=== PATIENT | male | born 1975 | race Caucasian/White ===

== ENCOUNTER 2021-02-06 14:10 | Day surgery (SDC) | payer OTHER ==
[2021-02-06] MEDS ORDERED: Piperacillin/Tazobactam 4.5 GM in Sodium Chloride 0.9% 100 ML IV ONE (14:45)
[2021-02-06] MEDS ORDERED: Sodium Chloride 0.9% 2.5 ML Syringe FLUSH PRN (14:45)
[2021-02-06] MEDS ORDERED: Sodium Chloride 0.9% 1,000 ML IV ONE (14:45)
[2021-02-06] MEDS ORDERED: Sodium Chloride 0.9% 10 ML Syringe FLUSH PRN (14:45)
[2021-02-06] MEDS ORDERED: HYDROmorphone 1 MG/ML Syringe IVPUSH ONE (14:46)
[2021-02-06] MEDS ORDERED: Ondansetron 4 MG/2 ML SDV IVPUSH ONE (14:46)
--- NOTE | 2021-02-06 15:28 | EDM.PDOC ---
ED HPI GENERAL MEDICAL PROBLEM - General Chief Complaint: General Stated Complaint: ABSCESS Time Seen by Provider: 02/06/21 14:12 - History of Present Illness INITIAL COMMENTS - FREE TEXT/NARRATIVE: History of present illness: [] This patient began to have perianal discomfort 6 days ago. It is gotten worse. He does not notice any external swelling except felt a little fullness like he might have a hemorrhoid. The patient's pain is become moderately severe. Its worse when he sits on it. Patient has not had a bowel movement for a few days. The patient had lab work and a CT ordered by his primary doctor. The CT showed a perianal abscess but there is very minimal localizing symptoms externally. Patient ate a bowl of chicken soup and fiber 1 at 2 PM. Review of systems: As per history of present illness and below otherwise all systems reviewed and negative. Past medical history: As per history of present illness and as reviewed below otherwise noncontributory. Surgical history: As per history of present illness and as reviewed below otherwise noncontributory. Social history: No reported history of drug or alcohol abuse. Family history: As per history of present illness and as reviewed below otherwise noncontributory. Physical exam: Constitutional - well developed, well-nourished and in no acute distress HEENT - normocephalic, no evidence of trauma - external nose and mouth normal - no mass in neck and no JVD - mucosae moist EYES - full EOM, PERRL, no icterus - no evidence of inflammation, injection, or drainage Respiratory - no respiratory distress, equal bilateral expansion Musculoskeletal no gross deformity of long bones or joints - no tenderness, swelling or edema Neurologic - Alert and oriented times four - CN II-XII grossly intact - motor sensory and coordination symmetrically normal Psychiatric - appropriate mood and affect with normal thought content Hematologic - No petechiae or purpura - mucosa appropriate color and sclera not pale - normal nail bed color and refill Integument - no rash or evidence of trauma - normal turgor -rectal -minimal swelling and soft tissue tenderness in the left side of the perianal soft tissues. Diagnostics: [] Therapeutics: [] Impression: [] Plan: [] Definitive disposition and diagnosis as appropriate pending reevaluation and review of above. Rectal Pain Score (Numeric/FACES): 8 - Related Data Allergies Allergy/AdvReac Type Severity Reaction Status Date / Time No Known Allergies Allergy Verified 02/06/21 14:56 Past Medical History Cardiovascular History: Reports: High Cholesterol, Hypertension - Infectious Disease History Infectious Disease History: Reports: Chicken Pox Social & Family History - Family History Family Medical History: No Pertinent Family History - Tobacco Use Tobacco Use Status *Q: Unknown Ever Used Tobacco - Caffeine Use Caffeine Use: Reports: Coffee ED ROS GENERAL - Review of Systems Review Of Systems: Comprehensive ROS is negative, except as noted in HPI. ED EXAM, GENERAL - Physical Exam Exam: See Below Free Text/Narrative:: My physical exam is in the HPI Course - Vital Signs Text/Narrative:: [id number] Watson and he will see the patient to make a disposition. He ordered a Covid test in case he needs to take the patient to the OR Seen 47 hours document: The patient decided they would go to the OR to try to explore this perianal abscess that is not readily visible from external exam. Last Recorded V/S: Last Vital Signs Temp 38.2 C H 02/06/21 14:58 Pulse 92 02/06/21 14:58 Resp 18 02/06/21 14:58 BP 131/80 02/06/21 14:58 Pulse Ox 97 02/06/21 14:58 - Orders/Labs/Meds Orders: Active Orders 24 hr Category Date Time Status NPO Now [Nothing per Oral Now Diet] [DIET] Diet 02/06/21 Dinner Active CORONAVIRUS COVID-19 MILADY [MOLEC] Stat Lab 02/06/21 15:38 Received Sodium Chloride 0.9% [Saline Flush] Med 02/06/21 14:45 Active 10 ml FLUSH ASDIRECTED PRN Sodium Chloride 0.9% [Saline Flush] Med 02/06/21 14:45 Active 2.5 ml FLUSH ASDIRECTED PRN Saline Lock Insert [OM.PC] Stat Oth 02/06/21 14:45 Ordered Medication Orders Sodium Chloride (Sodium Chloride 0.9% 10 Ml Syringe) 10 ml FLUSH ASDIRECTED PRN PRN Reason: Keep Vein Open Last Admin: 02/06/21 15:44 Dose: 10 ml Documented by: BAO Sodium Chloride (Sodium Chloride 0.9% 2.5 Ml Syringe) 2.5 ml FLUSH ASDIRECTED PRN PRN Reason: Keep Vein Open Last Admin: 02/06/21 15:44 Dose: 2.5 ml Documented by: BAO Meds: Medications Generic Name Dose Route Start Last Admin Trade Name Jl PRN Reason Stop Dose Admin Sodium Chloride 10 ml 02/06/21 14:45 02/06/21 15:44 Sodium Chloride 0.9% 10 Ml Syringe FLUSH 10 ml ASDIRECTED PRN Administration Keep Vein Open Sodium Chloride 2.5 ml 02/06/21 14:45 02/06/21 15:44 Sodium Chloride 0.9% 2.5 Ml Syringe FLUSH 2.5 ml ASDIRECTED PRN Administration Keep Vein Open Discontinued Medications Generic Name Dose Route Start Last Admin Trade Name Heberq PRN Reason Stop Dose Admin Hydromorphone HCl 1 mg 02/06/21 14:46 02/06/21 15:44 Hydromorphone 1 Mg/Ml Syringe IVPUSH 02/06/21 14:47 Not Given ONETIME ONE Sodium Chloride 1,000 mls @ 1,000 mls/hr 02/06/21 14:45 02/06/21 15:43 Normal Saline IV 02/06/21 15:44 1,000 mls/hr .Bolus ONE Administration Piperacillin Sod/Tazobactam 100 mls @ 100 mls/hr 02/06/21 14:45 02/06/21 15:43 Sod 4.5 gm/ Sodium Chloride IV 02/06/21 15:44 100 mls/hr ONETIME ONE Administration Ondansetron HCl 4 mg 02/06/21 14:46 02/06/21 15:44 Ondansetron 4 Mg/2 Ml Sdv IVPUSH 02/06/21 14:47 Not Given ONETIME ONE Departure - Departure Time of Disposition: 16:47 Disposition: Refer to Observation Condition: Good Clinical Impression: Perianal abscess - Discharge Information Referrals: Sandra Randhawa NP [Primary Care Provider] - Forms: ED Department Discharge Sepsis Event Note (ED) - Focused Exam Vital Signs: Vital Signs Temp Pulse Resp BP Pulse Ox 02/06/21 14:58 38.2 C H 92 18 131/80 97 - My Orders Last 24 Hours: My Active Orders 02/06/21 14:45 Sodium Chloride 0.9% [Saline Flush] 10 ml FLUSH ASDIRECTED PRN Sodium Chloride 0.9% [Saline Flush] 2.5 ml FLUSH ASDIRECTED PRN Saline Lock Insert [OM.PC] Stat 02/06/21 15:38 CORONAVIRUS COVID-19 MILADY [MOLEC] Stat 02/06/21 Dinner NPO Now [Nothing per Oral Now Diet] [DIET] - Assessment/Plan Last 24 Hours: My Active Orders 02/06/21 14:45 Sodium Chloride 0.9% [Saline Flush] 10 ml FLUSH ASDIRECTED PRN Sodium Chloride 0.9% [Saline Flush] 2.5 ml FLUSH ASDIRECTED PRN Saline Lock Insert [OM.PC] Stat 02/06/21 15:38 CORONAVIRUS COVID-19 MILADY [MOLEC] Stat 02/06/21 Dinner NPO Now [Nothing per Oral Now Diet] [DIET]
[2021-02-06] MEDS ORDERED: Bupivacaine Liposome 1.3% 20 ML SDV ONE (16:49)
[2021-02-06] MEDS ORDERED: fentaNYL 100 MCG/2 ML SDV ONE (17:01)
[2021-02-06] MEDS ORDERED: Propofol 200 MG/20 ML SDV ONE (17:01)
[2021-02-06] MEDS ORDERED: Lidocaine 2% 100 MG/5 ML Syringe ONE (17:02)
[2021-02-06] MEDS ORDERED: Ondansetron 4 MG/2 ML SDV ONE (17:02)
[2021-02-06] MEDS ORDERED: Ketorolac 30 MG/ML SDV ONE (17:02)
[2021-02-06] MEDS ORDERED: Metoclopramide 10 MG/2 ML SDV ONE (17:15)
[2021-02-06] MEDS ORDERED: Rocuronium Bromide 50 MG/5 ML Syringe ONE ×2 (17:34)
[2021-02-06] MEDS ORDERED: Sugammadex Sodium 200 MG/2 ML VIAL ONE (17:34)
--- NOTE | 2021-02-06 18:41 | PCM48HPAN ---
Post Anesthesia Note - EVALUATION WITHIN 48HRS OF ANESTHETIC Vital Signs in Normal Range: Yes Patient Participated in Evaluation: Yes Respiratory Function Stable: Yes Airway Patent: Yes Cardiovascular Function Stable: Yes Hydration Status Stable: Yes Pain Control Satisfactory: Yes Nausea and Vomiting Control Satisfactory: Yes Mental Status Recovered: Yes Vital Signs: Last Vital Signs Temp 38.2 C H 02/06/21 14:58 Pulse 73 02/06/21 17:22 Resp 18 02/06/21 17:22 BP 123/78 02/06/21 17:22 Pulse Ox 98 02/06/21 17:22
--- NOTE | 2021-02-06 18:44 | PCM.PREANE ---
Preanesthetic Assessment - Procedure Proposed Procedure: I & D Perianal Abscess - Anesthesia/Transfusion/Family Hx Anesthesia History: Prior Anesthesia Without Reaction Family History of Anesthesia Reaction: No Transfusion History: No Prior Transfusion(s) - Review of Systems General: No Symptoms Pulmonary: No Symptoms Cardiovascular: No Symptoms Gastrointestinal: No Symptoms - Physical Assessment NPO Status Date: 02/06/21 NPO Status Time: 14:00 (soup plan RSI) Vital Signs: Last Vital Signs Temp 38.2 C H 02/06/21 14:58 Pulse 73 02/06/21 17:22 Resp 18 02/06/21 17:22 BP 123/78 02/06/21 17:22 Pulse Ox 98 02/06/21 17:22 Height: 1.85 m Weight: 129.727 kg ASA Class: 2E Mental Status: Alert & Oriented x3 Airway Class: Mallampati = 4 Dentition: Reports: Normal Dentition ROM/Head Extension: Full Lungs: Clear to Auscultation, Normal Respiratory Effort Cardiovascular: Regular Rate, Regular Rhythm - Lab Values: Laboratory Last Values SARS-CoV-2 RNA (MILADY) NEGATIVE (NEGATIVE) 02/06/21 15:38 - Allergies Allergies/Adverse Reactions: Allergies Allergy/AdvReac Type Severity Reaction Status Date / Time No Known Allergies Allergy Verified 02/06/21 14:56 - Blood Blood Available: No - Anesthesia Plan Pre-Op Medication Ordered: None - Acknowledgements Anesthesia Type Planned: General Anesthesia Pt an Appropriate Candidate for the Planned Anesthesia: Yes Alternatives and Risks of Anesthesia Discussed w Pt/Guardian: Yes Pt/Guardian Understands and Agrees with Anesthesia Plan: Yes Additional Comments: RSI discussed with and patient. Controlled HTN and chol. occasional GERD. PreAnesthesia Questionnaire Cardiovascular History: Reports: High Cholesterol, Hypertension - Infectious Disease History Infectious Disease History: Reports: Chicken Pox - SUBSTANCE USE Tobacco Use Status *Q: Unknown Ever Used Tobacco - HOME MEDS Home Medications: Home Meds Amoxicillin/Clavulanate K [Augmentin 875-125 MG] 1 tab PO Q12HR #10 tablet 02/06/21 [Rx] oxyCODONE HCl/Acetaminophen [Percocet 5-325 mg Tablet] 1 each PO Q6HR PRN #10 tablet 02/06/21 [Rx] - CURRENT (IN HOUSE) MEDS Current Meds: Current Medications Sodium Chloride (Sodium Chloride 0.9% 10 Ml Syringe) 10 ml FLUSH ASDIRECTED PRN PRN Reason: Keep Vein Open Last Admin: 02/06/21 15:44 Dose: 10 ml Documented by: Sodium Chloride (Sodium Chloride 0.9% 2.5 Ml Syringe) 2.5 ml FLUSH ASDIRECTED PRN PRN Reason: Keep Vein Open Last Admin: 02/06/21 15:44 Dose: 2.5 ml Documented by: Discontinued Medications Bupivacaine Liposome (Bupivacaine Liposome 1.3% 20 Ml Sdv) 20 ml .XX .STK-MED ONE Stop: 02/06/21 16:50 Fentanyl (Fentanyl 100 Mcg/2 Ml Sdv) Confirm Administered Dose 100 mcg .ROUTE .STK-MED ONE Stop: 02/06/21 17:02 Hydromorphone HCl (Hydromorphone 1 Mg/Ml Syringe) 1 mg IVPUSH ONETIME ONE Stop: 02/06/21 14:47 Last Admin: 02/06/21 15:44 Dose: Not Given Documented by: Sodium Chloride (Normal Saline) 1,000 mls @ 1,000 mls/hr IV .Bolus ONE Stop: 02/06/21 15:44 Last Admin: 02/06/21 15:43 Dose: 1,000 mls/hr Documented by: Piperacillin Sod/Tazobactam (Sod 4.5 gm/ Sodium Chloride) 100 mls @ 100 mls/hr IV ONETIME ONE Stop: 02/06/21 15:44 Last Admin: 02/06/21 15:43 Dose: 100 mls/hr Documented by: Ketorolac Tromethamine (Ketorolac 30 Mg/Ml Sdv) Confirm Administered Dose 30 mg .ROUTE .STK-MED ONE Stop: 02/06/21 17:03 Lidocaine HCl (Lidocaine 2% 100 Mg/5 Ml Syringe) Confirm Administered Dose 100 mg .ROUTE .STK-MED ONE Stop: 02/06/21 17:03 Metoclopramide HCl (Metoclopramide 10 Mg/2 Ml Sdv) Confirm Administered Dose 10 mg .ROUTE .STK-MED ONE Stop: 02/06/21 17:16 Ondansetron HCl (Ondansetron 4 Mg/2 Ml Sdv) 4 mg IVPUSH ONETIME ONE Stop: 02/06/21 14:47 Last Admin: 02/06/21 15:44 Dose: Not Given Documented by: Ondansetron HCl (Ondansetron 4 Mg/2 Ml Sdv) Confirm Administered Dose 4 mg .ROUTE .STK-MED ONE Stop: 02/06/21 17:03 Propofol (Propofol 200 Mg/20 Ml Sdv) Confirm Administered Dose 200 mg .ROUTE .STK-MED ONE Stop: 02/06/21 17:02 Rocuronium [place] (Rocuronium [place] 50 Mg/5 Ml Syringe) Confirm Administered Dose 50 mg .ROUTE .STRupeetalk-MED ONE Stop: 02/06/21 17:35 Rocuronium [place] (Rocuronium [place] 50 Mg/5 Ml Syringe) Confirm Administered Dose 50 mg .ROUTE .STRupeetalk-MED ONE Stop: 02/06/21 17:35 Sugammadex Sodium (Sugammadex Sodium 200 Mg/2 Ml Vial) Confirm Administered Dose 200 mg .ROUTE .STRupeetalk-MED ONE Stop: 02/06/21 17:35
--- NOTE | 2021-02-06 18:45 | PCM.POSTAN ---
POST ANESTHESIA ASSESSMENT - MENTAL STATUS Mental Status: Alert - VITAL SIGNS Vital Signs: Last Vital Signs Temp 97.4 C H 02/06/21 18:31 Pulse 91 02/06/21 18:31 Resp 16 02/06/21 18:31 BP 114/63 02/06/21 18:31 Pulse Ox 99 02/06/21 18:31 - RESPIRATORY Respiratory Status: Respiratory Rate WNL, Airway Patent, O2 Saturation Stable - CARDIOVASCULAR CV Status: Pulse Rate WNL, Blood Pressure Stable - GASTROINTESTINAL GI Status: No Symptoms - POST OP HYDRATION Hydration Status: Adequate & Stable
--- NOTE | 2021-02-06 18:47 | PCM.OPNOTE ---
- General Post-Op/Procedure Note Date of Surgery/Procedure: 02/06/21 Operative Procedure(s): Incision and Drainage of perianal abscess Findings: Perianal abscess Pre Op Diagnosis: Perianal abscess Post-Op Diagnosis: Perianal abscess Anesthesia Technique: General ET Tube Primary Surgeon: Rashawn Watson Pathology: none EBL in mLs: 5 Complications: None Condition: Good
--- NOTE | 2021-02-06 19:48 | OR ---
SURGEON: RAFAEL DOBSON MD DATE OF PROCEDURE: 02/06/2021 PREOPERATIVE DIAGNOSIS: Perianal abscess. POSTOPERATIVE DIAGNOSIS: Perianal abscess. PROCEDURE PERFORMED: Incision and drainage of a left posterior perianal abscess. ANESTHESIA: General. PRIMARY SURGEON: Rafael Dobson MD ESTIMATED BLOOD LOSS: Under 5 mL. SPECIMENS: None. COMPLICATIONS: None. REASON FOR PROCEDURE: Patient is a pleasant 45-year-old gentleman who almost a week ago started having rectal pain. He thought it was a hemorrhoid, it got worse and more painful. He started having fevers and chills mid week and was having night sweats and came into Urgent Care because he could not tolerate the pain anymore. He had a CT scan that showed a 3 x 4 cm perianal abscess, more on the left side. I did go over with the patient risks, goals, and alternatives of the procedure. Risks included, but were not limited to bleeding, continued infection, need for more drainage, fistula formation, injury to underlying structures as well as the sphincter muscles leading to incontinence of stool or flatus. The patient says he understood and wished to proceed. PROCEDURE IN DETAIL: The patient was brought back to the OR. He was prepped and draped in usual sterile fashion. He was put in lithotomy. Anesthesia was anesthesia provided by Anesthesia team and antibiotics had been given in the ER. A time-out was performed. Digital exam was performed. Now that he was relaxed, the fluctuance was more obvious on the left posterior rectum and anus. I did do exam with a bivalve speculoscope. He did not appear to have any openings or fistula tracts inside the rectum. Again, on the outside of the rectum, he did have some pox pan and some indentation that looked like old abscesses perhaps in the past had drained. I did place a needle while drawing back on the syringe. I did get a quite a bit of purulence back. Now, Exparel was injected and a cruciate incision was made over the area of greatest fluctuance. I did get a good return of purulent material. The abscess cavity was then irrigated. This area was then gently probed. It did not appear to have any fistula tract going into the rectum. Again, the area was irrigated. We did have good hemostasis. The wound was packed with quarter-inch Nu Gauze. At end of the case, sponge and needle counts were correct. The patient was transferred to recovery room in stable condition. I did go over with the patient discharge instructions. Patient may shower and take sitz baths. He should stay on his antibiotics. The packing may come out tomorrow. He should keep the area clean and dry. I did speak with him and his . Patient will follow up with me next week. He will come back sooner if he has any issues or problems. CHAR / YOAN /[id number] MTDD
--- NOTE | 2021-02-07 06:02 | ER ---
HISTORY OF PRESENT ILLNESS: The patient is a pleasant 45-year-old gentleman who said last Tuesday or almost a week ago noticed some pain and bump right in his rectal area. He thought this was potentially a hemorrhoid. He says it slowly was getting worse and then on Tuesday started getting fevers and chills and shaking and night sweats. Last night, the patient says he was having fairly extreme pain. He did go into the walk-in clinic today on Tuesday. They did do a CT scan that showed a 5 x 3 cm left perianal abscess. He was sent from the walk-in clinic to the ER. The patient denies any nausea and vomiting. He said yesterday he did have what felt like a little issue with urination. He says his last bowel movement was yesterday. He denies any blood in his stool. PAST MEDICAL HISTORY: Significant for hypertension and hypercholesterolemia. ALLERGIES: No known drug allergies. CURRENT HOME MEDICATIONS: The patient does not remember the exact name, but he takes something for hypertension, something for cholesterol. PAST SURGICAL HISTORY: He had a left hydrocele repaired. FAMILY HISTORY: Father has type 1 diabetes. SOCIAL HISTORY: The patient denies tobacco use. Denies illicit drug use. He does drink about 6 beers a night. REVIEW OF SYSTEMS: Complete 12 plus review of systems was otherwise negative except as in HPI. PHYSICAL EXAMINATION: GENERAL: The patient is lying in the ER bed. He is alert and oriented, no acute distress. VITAL SIGNS: Temperature is 100.8, pulse is 92, blood pressure is 131/80, saturating 97% on room air. LUNGS: Clear to auscultation bilaterally. No rhonchi or wheezing heard. HEART: Regular rate and rhythm. No murmur appreciated. ABDOMEN: Soft, nontender, nondistended. EXTREMITIES: No edema. NEUROLOGIC: Grossly no motor or neurologic deficit noted. RECTAL: Outside, he looks like he has some pockmarks from previous abscesses. He does have a little bit of more fullness on the left side. On digital rectal exam, he does have what feels to be more of a slight bulge on the left side. No masses felt. IMAGING: I did review images, also called the radiologist. I discussed with him. Radiologist says it is just a perianal abscess. It is below the levator muscles. He says it is right at the beginning of the anus, follows the rectum up a little bit. LABORATORY DATA: White cell count is 10.6, hemoglobin is 14.2, platelet count is 200. Sodium 143, potassium is 4.3, BUN is 11, creatinine 0.9, glucose is 134. COVID is negative. ASSESSMENT AND PLAN: This is a pleasant 45-year-old gentleman who had a perianal abscess. This is apparently going on for almost a week and he has been having fevers, chills, and night sweats and was found to have a large abscess in his perianal area. Did go over with the patient risks, goals, and alternatives of incision and drainage. Risks include, but not limited to bleeding, recurrence, formation of fistula, need for further I and D, injury to underlying structures such as rectal muscles of which could lead to incontinence of fecal or flatus. The patient understands. The patient also wonders about using antibiotics alone. I did go over it could be if the abscess is fairly large, the general recommendations are for I and D of perianal abscesses, waiting could make the abscess larger and more difficult to drain. Also increases chance of any fistula formation. The patient understands. He did speak with his who wished to proceed with this procedure. I did go over with the patient that he may have a drain in place afterwards. The patient understands. He wishes to proceed. He wishes to be full code for the procedure. CHAR MILTON /[id number]
== END 2021-02-06 20:07 | disposition home or self-care (01) ==
LOC: MW.ED 14:10 → MW.SDS 16:48 → MW.ED 17:23 → MW.MS 19:05 → MW.SDS 20:07
PROVIDERS: ATTEND Surgery
DX: K61.0 Anal abscess (principal); I10 Essential (primary) hypertension; E78.00 Pure hypercholesterolemia, unspecified; G47.33 Obstructive sleep apnea (adult) (pediatric); Z98.890 Other specified postprocedural states; Z01.812 Encounter for preprocedural laboratory examination; Z20.822 Contact with and (suspected) exposure to COVID-19
CPT/HCPCS: 46050; 87635; 96365; 99284; J1885; J2405; J2543; J2704; J2765; J3010; J3490; J7030; 00902; 99283; U0002